=== PATIENT | male | born 1950 | race Caucasian/White ===

== ENCOUNTER → 2022-09-07 09:13 | Outpatient (BNVA) | payer SELFPAY | PROVIDERS: Visit Provider Physician Assistant Medical | DX: Z02.79 Encounter for issue of other medical certificate (principal) ==

== ENCOUNTER → 2022-11-27 14:11 | Outpatient (BNVA) | payer MEDICARE, OTHER, SELFPAY | PROVIDERS: PCP Internal Medicine; Visit Provider Physician Assistant Surgical | DX: E66.9 Obesity, unspecified (principal); Z68.38 Body mass index [BMI] 38.0-38.9, adult | CPT/HCPCS: 99202 ==

== ENCOUNTER 2022-12-15 10:03 | Outpatient (REF) | payer MEDICARE, OTHER, SELFPAY ==
[2022-12-15 10:44] LABS: MANUAL DIFF FLAG NO
[2022-12-15 11:05] LABS: Basophils Absolute Auto 0.1 X10*3/uL (0.0-0.2); Basophils Percent Auto 1.3 % (0-2); Eosinophils Absolute Auto 0.2 X10*3/uL (0.0-0.4); Eosinophils Percent Auto 2.8 % (0-4); Hematocrit 53.6 % (42.0-52.0); Hemoglobin 17.3 g/dl (14.0-18.0); Imm Gran Abs Auto 0.02 X10*3/uL (0.00-0.03); Imm Gran Pct Auto 0.3 % (0.0-0.4); Lymphocytes Absolute Auto 1.5 X10*3/uL (1.2-4.9); Mean Corpuscular HGB Conc 32.3 g/dl (31.0-36.0); Mean Corpuscular Hemoglobin 27.5 pg (27.0-33.0); Mean Corpuscular Volume 85.4 fL (80.0-98.0); Mean Platelet Volume 10.1 fL (9.4-12.4); Monocytes Absolute Auto 0.6 X10*3/uL (0.1-1.2); Neutrophils Absolute Auto 4.7 x10*3/uL (2.0-8.3); Neutrophils Percent Auto 65.6 % (45-73); Platelet Count 204 X10*3/uL (160-400); Red Blood Count 6.28 X10*6/uL (4.60-5.80); Red Cell Distribution Width 17.2 % (11.0-16.0); White Blood Count 7.2 X10*3/uL (4.8-10.8)
[2022-12-15 11:13] LABS: Estimated Average Glucose 117 mg/dL; Hemoglobin A1c % 5.7 %
[2022-12-15 11:46] LABS: Alanine Aminotransferase 16 U/L (0-40); Albumin Level 4.2 g/dL (3.5-5.0); Alkaline Phosphatase 69 U/L (39-117); Anion Gap 12 (12-20); Aspartate Amino Transferase 16 U/L (5-37); Bilirubin Total 0.8 mg/dL (0.0-1.0); Blood Urea Nitrogen 27 mg/dL (9-16); C Reactive Protein 0.16 mg/dL (< or = 0.50); Calcium 9.4 mg/dL (8.4-10.2); Carbon Dioxide 29 mmol/L (22-29); Chloride 105 mmol/L (96-108); Cholesterol 159 mg/dL; Estimated Glomerular Filt Rate > 60; Glucose Random 102 mg/dL (60-115); HDL Cholesterol 44 mg/dL; Iron 59 mcg/dL (45-160); LDL Cholesterol Calculated 95 mg/dl; Percent Iron Saturation 21 % (15-50); Potassium 4.8 mmol/L (3.3-5.1); Sodium 141 mmol/L (135-145); Total Iron Binding Capacity 282 mcg/dL (228-428); Total Protein 7.2 g/dL (6.5-8.0); Triglycerides 104 mg/dL; Unsaturated Iron Binding 223 ug/dL
[2022-12-15 12:20] LABS: Ferritin 81 ng/mL (20-250); Folate 13.8 ng/mL (> or = 4.0); Insulin 14 uU/mL (2-29); TSH reflex Free T4 1.09 uIU/mL (0.32-4.0); Vitamin B12 372 pg/mL (200-900); Vitamin D 25-OH Total 40.7 ng/mL (>30)
[2022-12-16 10:03] LABS: Calcium (PTHI) 9.4 mg/dL (8.6-10.3); PTHI 47 pg/mL (16-77)
[2022-12-17 16:28] LABS: Zinc 82 mcg/dL (60-130)
[2022-12-19 00:43] LABS: Vitamin A 53 mcg/dL (38-98)
== END 2022-12-15 10:04 | disposition home or self-care (01) ==
LOC: HO.LAB 10:03
PROVIDERS: PCP Internal Medicine; Visit Provider Physician Assistant Surgical
DX: E66.9 Obesity, unspecified (principal)
CPT/HCPCS: 36415; 80053; 80061; 82306; 82607; 82728; 82746; 83036; 83525; 83540; 83970; 84425; 84443; 84590; 84630; 85025; 86140

== ENCOUNTER → 2023-01-13 11:53 | Outpatient (BNVA) | payer MEDICARE, OTHER, SELFPAY | PROVIDERS: PCP Internal Medicine; Visit Provider Dietitian, Registered | DX: E66.9 Obesity, unspecified (principal); Z68.36 Body mass index [BMI] 36.0-36.9, adult | CPT/HCPCS: 97802 ==

== ENCOUNTER → 2023-02-01 12:58 | Outpatient (BNVA) | payer MEDICARE, OTHER, SELFPAY | PROVIDERS: PCP Internal Medicine; Referring Provider Internal Medicine; Visit Provider Physician Assistant Surgical | DX: E66.9 Obesity, unspecified (principal); Z68.35 Body mass index [BMI] 35.0-35.9, adult | CPT/HCPCS: 99212 ==

== ENCOUNTER → 2023-03-08 14:02 | Outpatient (BNVA) | payer MEDICARE, OTHER, SELFPAY | PROVIDERS: PCP Internal Medicine; Visit Provider Physician Assistant Surgical | DX: E66.9 Obesity, unspecified (principal); Z68.35 Body mass index [BMI] 35.0-35.9, adult | CPT/HCPCS: 99212 ==

== ENCOUNTER 2023-04-14 11:35 | Outpatient (REF) | payer MEDICARE, OTHER, SELFPAY ==
[2023-04-14 14:37] LABS: Vitamin D 25-OH Total 57.1 ng/mL (>30)
[2023-04-14 14:46] LABS: Vitamin B12 573 pg/mL (200-900)
[2023-04-19 13:13] LABS: Zinc 100 mcg/dL (60-130)
[2023-04-21 00:57] LABS: Vitamin A 67 mcg/dL (38-98)
[2023-04-21 05:58] LABS: Vitamin B1 19 nmol/L (8-30)
== END 2023-04-14 11:36 | disposition home or self-care (01) ==
LOC: HO.LAB 11:35
PROVIDERS: PCP Internal Medicine; Visit Provider Physician Assistant Surgical
DX: E66.9 Obesity, unspecified (principal); E63.9 Nutritional deficiency, unspecified
CPT/HCPCS: 36415; 82306; 82607; 82746; 84425; 84590; 84630; 99212

== ENCOUNTER 2023-05-25 13:25 | Outpatient (AMB) | payer MEDICARE, OTHER, SELFPAY ==
--- NOTE | 2023-05-25 13:31 | MHC.OFFVISWM ---
Intake VS Expanded 05/25/23 13:34 Height 5 ft 6 in Weight 211 lb 6.4 oz BMI 34.1 BP 133/60 Blood Pressure Location Rt brachial Blood Pressure Position Sitting Pulse 56 Pulse Source Pulse Oximeter Temp 98.0 F Temperature Source Temporal Artery Scan Pulse Oximetry 95 Oxygen Delivery Method Room Air Body Fat 60.8 Body Fat Percentage 28.8 Free Fat Mass 150.4 Muscle Mass 142.8 Visceral Mass 19.0 Water Mass 109.2 BMR 1,995 Intake Visit Reasons: (OV) F/U MWL Allergies No Known Allergies Allergy (Verified 05/25/23 13:33) Medication List - Last Reconciled 05/25/23 by DUNIA Espana amlodipine 5 mg PO DAILY atorvastatin 10 mg PO DAILY carvedilol phosphate ER 40 mg PO DAILY multivitamin 1 tab PO DAILY tadalafil 20 mg PO DAILY PRN tamsulosin 0.4 mg PO DAILY HPI HPI Comments History of Present Illness Details Pt presents in followup for MWL. Starting weight: 238.4 Weight at last visit: 214.2 Total weight change: -27 Goal weight: 210 Meal plan: Breakfast:?[employer] protein shake Goes to the gym 11:30am-12pm Omelet with vegetables- sometimes from a restaurant Snack:? Piece of fruit (oranges, apple)- after last visit added in a few slices of deli turkey to increase total protein intake Dinner salad with chicken and balsamic vinaigrette - small amount, or chicken and veg skewers with cottage cheese, or fish and asparagus/veg reports some irregular eating during summer vacations Exercise:? 2 times per week goes to a 1hr class with a focus core work session is 40 minutes plus 30 minutes of treadmill.? Additional 2-3 times per week does the elliptical. TRX classes once a week. Starting to golf. ? Has not had any additional episodes of bleeding tongue. PFSH Surgical History Hx of bladder endoscopy Hx of colonoscopy Family History Mother Diabetes Father No problems noted. Brother No problems noted. Brother ALS (amyotrophic lateral sclerosis) Brother No problems noted. Daughter No problems noted. Daughter No problems noted. Social History Alcohol intake: never Patient Tobacco Use Status: Never used Tobacco Physical Exam Vital Signs: Last Vital Signs Temp 98.0 F 05/25/23 13:34 Pulse 56 05/25/23 13:34 BP 133/60 05/25/23 13:34 Pulse Ox 95 05/25/23 13:34 Oxygen Delivery Method Room Air 05/25/23 13:34 BMI result Body Mass Index 34.1 Assessment & Plan Assessment & Plan (1) Obesity: Code(s): E66.9 - Obesity, unspecified Plan Vitamin levels were repeated for complaint of bleeding tongue, all WNL. Pt will continue same meal plan and exercise regimen for now. He finds it sustainable and we reviewed positive body composition changes on [place]. RTC 6 weeks per pt preference for ongoing MWL followup. Patient is obese and is not considered stable at this time. I spent a total of 30 minutes reviewing/updating records, examining the patient and counseling the patient on weight management as detailed above. Coding Level of Care Code Est Pt Level 4 (13853) Diagnoses Obesity E66.9
[2023-05-25 13:34] VITALS: BP 133/60; PULSE 56; TEMP 36.7; O2SAT 95; BMI 34.1
== END 2023-05-25 14:01 | disposition home or self-care (01) ==
PROVIDERS: PCP Internal Medicine; Visit Provider Physician Assistant Surgical
DX: E66.9 Obesity, unspecified (principal); Z68.34 Body mass index [BMI] 34.0-34.9, adult
CPT/HCPCS: 99214

== ENCOUNTER → 2023-05-25 13:25 | Outpatient (BNVA) | payer MEDICARE, OTHER, SELFPAY | PROVIDERS: PCP Internal Medicine; Visit Provider Physician Assistant Surgical | DX: E66.9 Obesity, unspecified (principal); Z68.34 Body mass index [BMI] 34.0-34.9, adult | CPT/HCPCS: 99212 ==

== ENCOUNTER 2023-07-13 12:31 | Outpatient (AMB) | payer MEDICARE, OTHER, SELFPAY ==
--- NOTE | 2023-07-13 12:33 | A.OFFVIS_ITS ---
Intake VS Expanded 07/13/23 12:42 Height 5 ft 6 in Weight 207 lb 9.6 oz BMI 33.5 BP 129/69 Blood Pressure Location Rt brachial Blood Pressure Position Sitting Respiratory Rate 16 Pulse 54 Pulse Source Pulse Oximeter Temp 98.4 F Temperature Source Temporal Artery Scan Pulse Oximetry 95 Oxygen Delivery Method Room Air Body Fat 59.4 Body Fat Percentage 28.6 Free Fat Mass 148.2 Muscle Mass 140.8 Visceral Mass 19.0 Water Mass 106.8 BMR 1,963 Intake Visit Reasons: (OV) F/U MWL Allergies No Known Allergies Allergy (Verified 07/13/23 12:42) Medication List - Last Reconciled 07/13/23 by DUNIA Espana amlodipine 5 mg PO DAILY atorvastatin 10 mg PO DAILY carvedilol phosphate ER 40 mg PO DAILY multivitamin 1 tab PO DAILY tadalafil 20 mg PO DAILY PRN tamsulosin 0.4 mg PO DAILY HPI HPI Comments History of Present Illness Details Pt presents in followup for MWL. Starting weight: 238.4 Weight at last visit: 211.4 Total weight change: -30.8 Initial goal weight: 210 Would now like to get under 200lbs. Meal plan: Breakfast:?[employer] protein shake Goes to the gym 11:30am-12pm Omelet with vegetables- sheryl etimes from a restaurant Snack:? Piece of fruit (oranges, apple)- after last visit added in a few slices of deli turkey to increase total protein intake Dinner salad with chicken and balsamic vinaigrette - small amount, or chicken and veg skewers with cottage cheese, or fish and asparagus/veg sometimes cheats Exercise:? 2 times per week goes to a 1hr class with a focus core work session is 40 minutes plus 30 minutes of treadmill.? Additional 2-3 times per week does the elliptical. TRX classes once a week. Starting to golf. ? PFSH Surgical History Hx of bladder endoscopy Hx of colonoscopy Family History Mother Diabetes Father No problems noted. Brother No problems noted. Brother ALS (amyotrophic lateral sclerosis) Brother No problems noted. Daughter No problems noted. Daughter No problems noted. Social History Alcohol intake: never Patient Tobacco Use Status: Never used Tobacco Assessment & Plan Assessment & Plan (1) Obesity: Code(s): E66.9 - Obesity, unspecified Plan Pt has done very well in MWL. Achieved 12.9% TBWL during this program. He is interested in semaglutide and will ask his PCP at next month's appt. I encouraged him to reach out via text or email with any future questions and he will come in for weight checks occasionally for accountability. Patient is obese and is not considered stable at this time. I spent a total of 30 minutes reviewing/updating records, examining the patient and counseling the patient on weight management as detailed above. Coding Level of Care Code Est Pt Level 4 (25505) Diagnoses Obesity E66.9
[2023-07-13 12:42] VITALS: BP 129/69; PULSE 54; RESP 16; TEMP 36.9; O2SAT 95; BMI 33.5
== END 2023-07-13 13:10 | disposition home or self-care (01) ==
PROVIDERS: PCP Internal Medicine; Visit Provider Physician Assistant Surgical
DX: E66.9 Obesity, unspecified (principal); Z68.33 Body mass index [BMI] 33.0-33.9, adult
CPT/HCPCS: 99213

== ENCOUNTER → 2023-07-13 12:31 | Outpatient (BNVA) | payer MEDICARE, OTHER, SELFPAY | PROVIDERS: PCP Internal Medicine; Visit Provider Physician Assistant Surgical ==

== ENCOUNTER → 2023-08-23 10:32 | Outpatient (BNVA) | payer SELFPAY | PROVIDERS: PCP Internal Medicine; Visit Provider Physician Assistant Medical | DX: Z02.79 Encounter for issue of other medical certificate (principal) ==

== ENCOUNTER 2025-03-20 10:51 | Outpatient (AMB) | payer MEDICARE, OTHER, SELFPAY ==
--- NOTE | 2025-03-20 10:55 | A.OFFVIS_ITS ---
VS Expanded 03/20/25 11:16 BP 127/65 Blood Pressure Location Rt brachial Blood Pressure Position Sitting Pulse 65 Pulse Source Pulse Oximeter Temp 97.9 F Temperature Source Temporal Artery Scan Pulse Oximetry 96 Oxygen Delivery Method Room Air Height 5 ft 6 in Weight 193 lb 9.6 oz BMI 31.2 Body Fat % 26.5 Body Fat Mass 51.4 Fat Free Mass 142.2 Visceral Fat Rating 17.0 Body Water % 52.2 Body Water Mass 101.0 Muscle Mass/Score 135.2 Basal Metabolic Rate/Score 1,869 Intake Visit Reasons: office visit , MWL Allergies No Known Allergies Allergy (Verified 03/20/25 11:13) Medication List - Last Reconciled 03/20/25 by DUNIA Espana amlodipine 5 mg PO DAILY atorvastatin 10 mg PO DAILY carvedilol phosphate ER 40 mg PO DAILY multivitamin 1 tab PO DAILY semaglutide (weight loss) (Wegovy) 1.7 mg subcut QWEEK tadalafil 20 mg PO DAILY PRN tamsulosin 0.4 mg PO DAILY HPI Comments Details: Pt presents in followup for MWL. Last visit 07/13/2023 Starting weight: 238.4 Weight at last visit: 207.6 Total weight change: -44.8 Initial goal weight: 210 On Wegovy 1.7, new goal is 180lbs. He reports a side effect of skin reaction that felt like a sunburn that he thought was due to Wegovy. Not related to injection site. Meal plan: Breakfast: [employer] michelle quigley Goes to the gym 11:30am-12pm Omelet with vegetables- sometimes from a restaurant Snack: Piece of fruit (oranges, apple) or cottage cheese with wheat crackers Dinner salad with chicken and balsamic vinaigrette - small amount, or chicken and veg skewers with cottage cheese, or fish and asparagus/veg Exercise: 2 times per week goes to a 1hr class with a focus core work session is 40 minutes plus 30 minutes of treadmill. Additional 2-3 times per week does the elliptical. TRX classes once a week. Starting to golf. PFSH Surgical History Hx of bladder endoscopy Hx of colonoscopy Family History Mother Diabetes Father No problems noted. Brother No problems noted. Brother ALS (amyotrophic lateral sclerosis) Brother No problems noted. Daughter No problems noted. Daughter No problems noted. Social History Alcohol intake: never Patient Tobacco Use Status: Never used Tobacco Assessment & Plan Assessment & Plan (1) Obesity: Code(s): E66.9 - Obesity, unspecified Category: Medical Plan Pt doing well on Wegovy, requests us to prescribe as his insurance requires it. Will continue same meal plan and exercise regimen. Sent pt a text so he has my # to communicate between appts and request refills. RTC 3mo. Medications: New semaglutide (weight loss) (Wegovy) administer weeks 13 through 16 of therapy 1.7 mg (0.75 mL) subcut QWEEK 3 mL 0RF
[2025-03-20 11:16] VITALS: BP 127/65; PULSE 65; TEMP 36.6; O2SAT 96; BMI 31.2
--- OUTSIDE RECORDS SUMMARY | 2025-03-20 11:40 | XMS_ITS | Encounter Summary ---
Author Organization [facility] Address [address] [place] [address] Care Team Providers Care Patent Engineer Name Role Phone Physician, Pcp Unknown Primary Care Provider Melly vailable Encounter Details Date Type Department Care Team (Late st Contact Info) Description 01/02/2025 Lab Requisition [facility] - Main Lab [address] [facility] [place] [address] Sang Knutson MD [address] [place] [phone] Carcinoma in situ of bladder Social History Tobacco Use Types Packs/Day Years Used Date Smoking Tobacco: Never Assessed Sex and Gender Information Value Date Recorded Sex Assigned at Not on file Legal Sex Male 7:47 AM EST Gender Identity Not on file Sexual Orientation Not on file documented as of this encounter Plan of Treatment Not on file documented as of this encounter Procedures Procedure Name Priority Date/Time Associated Diagnosis Comments AP OUTSIDE CONSULT Routine 12/28/2024 12 :00 AM EST Carcinoma in situ of bladder documented in this encounter Results * Anatomic pathology outside consult (12/28/2024 12:00 AM EST) Addendum Results of UroVysion fluorescence in situ hybridization (FISH) testing: CEP3: Normal CEP7: Normal CEP17: Normal LSI 9p21: Normal Interpretation: Normal profile Controls stained appropriately. Note: The results are intended as a screening device and should be interpreted in association with other clinical and pathological findings. 01/09/2025 12:43 PM EDT [facility] Addendum electronically signed by Bruno Cordoba MD on 01/09/2025 at 12:43 PM Final Diagnosis A. Urine, Voided, ([id number]): Negative for high grade urothelial carcinoma. Acute inflammatory cells are present. Note: UroVysion testing to follow. 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 Urine, Voided, ([id number]): Received one ThinPrep slide for cytology and one ThinPrep slide for UroVysion FISH 01/09/2025 12:43 PM EDT [facility] Disclaimer Unless otherwise specified, all tissue is 10% NB formalin fixed and paraffin embedded. Technical pathology services provided by [facility] at [address], [place] [address] (CLIA #[id number]/Shabnam Dwyer MD, Labor Relations Representative) 01/09/2025 12:43 PM EDT [facility] Tissue Urine specimen from urethra / Unknown 12/28/2024 01/02/2025 4:26 PM EDT us Sang Knutson MD LAB PATHOLOGY ORDERABLES Edite d Result - Final [facility] [address] [place] [address], documented in this encounter Visit Diagnoses Diagnosis Carcinoma in situ of bladder documented in this encounter Care Teams Patent Engineer Relationship Specialty Start Date End Date Physician, Pcp Unknown PCP - General 01/02/25 documented as of this encounter
== END 2025-03-20 11:37 | disposition home or self-care (01) ==
LOC: HO.HBS 10:52
PROVIDERS: PCP Internal Medicine; Visit Provider Physician Assistant Surgical
DX: E66.9 Obesity, unspecified (principal); Z68.31 Body mass index [BMI] 31.0-31.9, adult; E66.811 Obesity, class 1
CPT/HCPCS: 99214; G2211

== ENCOUNTER → 2025-03-20 10:51 | Outpatient (BNVA) | payer MEDICARE, OTHER, SELFPAY | PROVIDERS: PCP Internal Medicine; Visit Provider Physician Assistant Surgical | DX: E66.9 Obesity, unspecified (principal); Z68.31 Body mass index [BMI] 31.0-31.9, adult | CPT/HCPCS: 99212 ==

== ENCOUNTER 2025-05-29 11:53 | Outpatient (AMB) | payer MEDICARE, OTHER, SELFPAY ==
--- NOTE | 2025-05-29 11:57 | MHC.OFFVISWM ---
VS Expanded 05/29/25 12:04 BP 110/51 L Blood Pressure Location Rt brachial Blood Pressure Position Sitting Pulse 62 Pulse Source Pulse Oximeter Temp 97.3 F Pulse Oximetry 96 Oxygen Delivery Method Room Air Height 5 ft 6 in Weight 188 lb 3.2 oz BMI 30.4 Body Fat % 25.5 Body Fat Mass 48 Fat Free Mass 140 Visceral Fat Rating 17 Body Water % 52.6 Body Water Mass 99 Muscle Mass/Score 133 Basal Metabolic Rate/Score 1,835 Intake Visit Reasons: OV F/U MWL Allergies No Known Allergies Allergy (Verified 05/29/25 12:08) Medication List - Last Reconciled 05/29/25 by Abdiaziz Castro, RN amlodipine 5 mg PO DAILY atorvastatin 10 mg PO DAILY carvedilol phosphate ER 40 mg PO DAILY multivitamin 1 tab PO DAILY semaglutide (weight loss) (Wegovy) 2.4 mg (0.75 mL) subcut QWEEK tadalafil 20 mg PO DAILY PRN tamsulosin 0.4 mg PO DAILY HPI Comments Details: Pt presents in followup for MWL. Starting weight: 238.4 Weight at last visit: 193.6 Total weight change: -52.2 Initial goal weight: 210 On Wegovy 2.4, new goal is 180lbs. Meal plan: Breakfast: [employer] protein soraida Goes to the gym 11:30am-12pm Omelet with vegetables- sometimes from a restaurant Snack: Piece of fruit (oranges, apple) or cottage cheese with wheat crackers Dinner salad with chicken and balsamic vinaigrette - small amount, or chicken and veg skewers with cottage cheese, or fish and asparagus/veg Exercise: 2 times per week goes to a 1hr class with a focus core work session is 40 minutes plus 30 minutes of treadmill. Additional 2-3 times per week does the elliptical. TRX classes once a week. Starting to golf. PFSH Surgical History Hx of bladder endoscopy Hx of colonoscopy Family History Mother Diabetes Father No problems noted. Brother No problems noted. Brother ALS (amyotrophic lateral sclerosis) Brother No problems noted. Daughter No problems noted. Daughter No problems noted. Social History Alcohol intake: never Patient Tobacco Use Status: Never used Tobacco Physical Exam Vital Signs: Last Vital Signs Temp 97.3 F 05/29/25 12:04 Pulse 62 05/29/25 12:04 BP 110/51 L 05/29/25 12:04 Pulse Ox 96 05/29/25 12:04 Oxygen Delivery Method Room Air 05/29/25 12:04 BMI result Body Mass Index 30.4 Assessment & Plan Assessment & Plan (1) Obesity: Code(s): E66.9 - Obesity, unspecified Category: Medical Plan Pt is happy with his progress. On max dose of Wegovy without side effects. Will text me next week when due for a refill. RTC in September prior to plans to travel to [place].
[2025-05-29 12:04] VITALS: BP 110/51; PULSE 62; TEMP 36.3; O2SAT 96; BMI 30.4
--- OUTSIDE RECORDS SUMMARY | 2025-05-29 12:42 | XMS_ITS | Encounter Summary ---
Author Organization [facility] Address [address] [place] [address] Phone Care Team Providers Care Engineer Name Role Phone Daniel Mooney MD Primary Care Provider Sang Knutson MD Unavailable [phone] Abdiaziz Aceves MD, MPH Unavailable [phone] Encounter Details Date Type Department Care Team (Late st Contact Info) Description 08/10/2024 Procedure Pass Britta Lank Imaging Department, [facility] [place], [place] [address] [place] [address] Social History Tobacco Use Types Packs/Day Years Used Date Smoking Tobacco: Never Smokeless Tobacco: Never Alcohol Use Standard Drinks/Week Comments Yes 0 (1 standard drink = 0.6 oz pur e alcohol) Child or Family Care Answer Date Record ed Do you have problems with on e of the following making it difficult for you to work, study, or receive health care? No 08/10/2024 Education Answer Date Recorded Are you interested in more education? Not on kathia e 02/19/2023 Are you concerned about learning? Not on file 02/19/2023 No 02/19/2023 No 02/19/2023 Food Answer Date Recorded Within the past 6 months we worried whether our food would run out before we got money to buy more. Never True 08/10/2024 Within the past 6 months the food we bought just didn't last and we didn't have enough money to get more. Never True Residential Stability Answer Date Recor ded What is your housing situation today? I have toñito bullard 08/10/2024 How many times have you move d in the past 12 months? Zero (I did not move) 08/10/2024 Paying for Meds Answer Date Recorded Do you have trouble paying for medicines? No 08/10/2024 Paying Utility Bills Answer Date Record ed Do you have trouble paying your heating or elect ricity bill? No 08/10/2024 Transportation Answer Date Recorded Has the lack of transportati on kept you from medical appointments or from getting medications? No 08/10/2024 Digital Access Answer Date Recorded No 03/20/2023 No 03/20/2023 Reliable internet access at home? Not on file 03/20/2023 Device with a working camera? Not on file Sex and Gender Information Value Date Recorded Sex Assigned at Male 06/27/2024 12:31 PM EDT Legal Sex Male 4:06 PM EDT Gender Identity Male 06/27/2024 12:31 PM EDT Sexual Orientation Straight 06/27/2024 12 :31 PM EDT documented as of this encounter Plan of Treatment Not on file documented as of this encounter Visit Diagnoses Not on filedocumented in this encounter Care Teams Engineer Relationship Specialty Start Date End Date Daniel Mooney MD [address] [place] [address] [address] [place] [address] PCP - General Internal Medicine 08/02/18 Sang Knutson MD [address] [place] [address] [address] [place] [phone] [email or web address] Referring Physician Urology 06/27/24 Abdiaziz Aceves MD, MPH [address] [place] [id number] [email or web address] Urology 06/27/24 documented as of this encounter Additional Source Comments The information contained in this document represents components of the legal health record. It is not the complete legal health record.[facility]
--- OUTSIDE RECORDS SUMMARY | 2025-05-29 12:42 | XMS_ITS | Encounter Summary ---
Author Organization [facility] Address [address] [place] [address] Care Team Providers Care Automation Operator Name Role Phone Daniel Mooney MD Primary Care Provider [phone] Encounter Details Date Type Department Care Team (Late st Contact Info) Description 01/02/2025 Lab Requisition [facility] - Main Lab [address] [facility] [place] [address] Sang Knutson MD [address] [place] [address] Carcinoma in situ of bladder Social History [...] and pathological findings. 01/09/2025 12:43 PM EDT [facility] Addendum electronically signed by Bruno Cordoba MD on 01/09/2025 at 12:43 PM Final Diagnosis A. Urine, Voided, ([id number]): Negative for high grade urothelial carcinoma. Acute inflammatory cells are present. Note: UroVysion testing to follow. 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 Urine, Voided, ([id number]): Received one ThinPrep slide for cytology and one ThinPrep slide for UroVysion FISH 01/09/2025 12:43 PM EDT [facility] Disclaimer Unless otherwise specified, all tissue is 10% NB formalin fixed and paraffin embedded. Technical pathology services provided by [facility] at [address], [place] [address] (CLIA #[id number]/Shabnam Dwyer MD, Landscape Artist) 01/09/2025 12:43 PM EDT [facility] Tissue Urine specimen from urethra / Unknown 12/28/2024 01/02/2025 4:26 PM EDT Sang Knutson MD LAB PATHOLOGY ORDERABLES Edite d Result - Final [facility] [address] [place] [address], documented in this encounter Visit Diagnoses Diagnosis Carcinoma in situ of bladder documented in this encounter Care Teams Automation Operator Relationship Specialty Start Date End Date Daniel Mooney MD [address] [place] [id number] PCP - General Internal Medicine 04/13/25 documented as of this encounter
--- OUTSIDE RECORDS SUMMARY | 2025-05-29 12:42 | XMS_ITS | Clinical Summary ---
Author Organization [facility], Address [address] [place] [address] Phone Care Team Providers Care Superintendent Maintenance Airports Name Role Phone Daniel Mooney MD Primary Care Provider [phone] Allergies No known active allergies Medications aspirin (ST SHELLEY) 81 MG EC tablet Take 81 mg by mouth 1 (one) time each day Active atorvastatin (LIPITOR) 10 MG tablet Take 10 mg by mouth 1 (one) time each day Active carvedilol CR (COREG CR) 40 MG 24 hr capsule Take 40 mg by mouth 1 (one) time each day Do not crush or chew. Active sertraline (ZOLOFT) 50 MG tablet Take 50 mg by mouth 1 (one) time each day Active tadalafil (CIALIS) 20 MG tablet Take 20 mg by mouth 1 (one) time each day if needed for erectile dysfunction Active tamsulosin (FLOMAX) 0.4 MG 24 hr capsule Take by mouth 1 (one) time each day 2 Active prednisoLONE acetate (PRED FORTE) 1 % ophthalmic suspension INSTILL 1 DROP INTO RIGHT EYE 4X/DAY 2 Active GaviLyte-G 236 g solution TAKE 8 OUNCE BY MOUTH DIRECTED FOLLOW INSTRUCTIONS PROVIDED BY DOCTOR OFFICE 2 Active hydrOXYzine (ATARAX) 10 MG tablet TAKE 2 TABLETS BY MOUTH 4 TIMES A DAY NEEDED FOR ANXIETY 2 Active fluticasone (FLONASE) 50 MCG/ACT nasal spray USE 1 SPRAY INTRANASALLY TWICE A DAY 2 Active ciclopirox (LOPROX) 0.77 % cream APPLYTO AFFECTED AREA EXTERNALLY TO FEET TWICE A DAY FOR 30 DAYS 2 Active amLODIPine (NORVASC) 5 MG tablet Take 5 mg by mouth 1 (one) time each day 2 Active Active Problems Problem Noted Date Diagnosed Date Chronic kidney disease stage 3 12/19/2021 Anxiety 12/19/2021 Hyperlipidemia 12/19/2021 Hypertensive disorder 12/19/2021 Malignant neoplasm of urinary bladder 12/19/2021 Multiple renal cysts 12/19/2021 Resolved Problems Problem Noted Date Diagnosed Date Resolved Date Diverticulosis of colon 12/19/202111/26 History of cerebrovascular accident 12/19/2021 12/19/2021 Impaired glucose tolerance 12/19/2021 0 12/19/2021 Nonalcoholic steatohepatitis (BETHEA) 12/19/2021 12/19/2021 Tinea unguium 12/19/2021 12/19/2021 Bilateral hearing loss 07/13/201912/19 Chronic otitis externa 08/15/201812/19 Sensorineural hearing loss, bilateral 08/15/2018 12/19/2021 Social History Tobacco Use Types Packs/Day Years Used Date Smoking Tobacco: Never Assessed Sex and Gender Information Value Date Recorded Sex Assigned at Not on file Legal Sex Male 11:04 AM EST Gender Identity Not on file Sexual Orientation Not on file Last Filed Vital Signs Vital Sign Reading Time Taken Comments Blood Pressure 116/64 07/28/2024 2:50 PM EDT Pulse - - Temperature - - Respiratory Rate - - Oxygen Saturation - - Inhaled Oxygen Concentration - - Weight - - Height - - Body Mass Index - - Plan of Treatment Health Maintenance Due Date Last Done Comments Colorectal Cancer Screening: Annual FOBT 1998 Colorectal Cancer Screening: Colonoscopy 1998 Colorectal Cancer Screening: Sigmoidoscopy 1998 Hepatitis B Vaccine (1 of 3 - Risk 3-dose series) 02/2009 Pneumococcal Vaccine: 50+ Ye ars (2 of 2 - PPSV23, PCV20, or PCV21) 02/26/2020 01/01/2020 Influenza Vaccine (#1) 2025 Insurance Medicare [facility] Care Teams Superintendent Maintenance Airports Relationship Specialty Start Date End Date Daniel Mooney MD [address] [place] [address] PCP - General Internal Medicine 11/11/21
== END 2025-05-29 12:26 | disposition home or self-care (01) ==
LOC: HO.HBS 11:53
PROVIDERS: PCP Internal Medicine; Visit Provider Physician Assistant Surgical
DX: E66.9 Obesity, unspecified (principal); Z68.30 Body mass index [BMI] 30.0-30.9, adult
CPT/HCPCS: 99212; G2211

== ENCOUNTER → 2025-05-29 11:53 | Outpatient (BNVA) | payer MEDICARE, OTHER, SELFPAY | PROVIDERS: PCP Internal Medicine; Visit Provider Physician Assistant Surgical | DX: E66.9 Obesity, unspecified (principal); Z68.30 Body mass index [BMI] 30.0-30.9, adult; Z79.899 Other long term (current) drug therapy | CPT/HCPCS: 99212 ==

== ENCOUNTER 2025-09-26 12:21 | Outpatient (AMB) | payer MEDICARE, OTHER, SELFPAY ==
--- OUTSIDE RECORDS SUMMARY | 2025-07-05 05:30 | XMS_ITS ---
Author Organization [facility] Address [address] [place] [address] Care Team Providers Care Maintenance Electrician Name Role Phone Jesica CARUSO, Daniel Primary Care Provider Cristian Chavez Unavailable [phone] Encounters Encounter Location Date Provider Diagnosis [address] [id number] 07/05/2025 Cristian Sharma Plan Of Treatment Next Appt Details Provider Name:Cristian Sharma , 10/15/2025 09:00:00 AM, [address] [place] [address], [phone], Progress Notes * Janes BOYCE MDOB: [birth year] (74 yo M)Acc No.[id number]:07/05/2025 Progress Note Patient: Janes GODOY Provider: Tan Sharma DPM :1950 A ge:74 Y S ex:Male Date:07/05/2025 Address:[id number] Pcp:Daniel Mooney MD Subjective: * Chief Complaints: * * Medical History: Objective: * Vitals: Assessment: Plan: * Treatment: * Images: * The named appointment provid er may or may not be the originator of this progress note, and it is not deemed complete until electronically signed by the appointment provider. Sign off status: Pending * Provider: Tan Sharma DPM Date: 0 07/05/2025 Generated for Lisa byrd/Mariposa/Hubert on: 11/27/2024 02:40 PM EST
--- NOTE | 2025-09-26 12:37 | MHC.OFFVISWM ---
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 Starting weight: 238.4 Weight at last visit: 188.2 Total weight change: -50.2 Initial goal weight: 210 On Wegovy 2.4mg, new goal is 180lbs. Meal plan: Breakfast: [employer] protein soraida Goes to the gym 11:30am-12pm Omelet with vegetables- sometimes from a restaurant Snack: Piece of fruit (oranges, apple) or cottage cheese with wheat crackers Dinner salad with chicken and balsamic vinaigrette - small amount, or chicken and veg skewers with cottage cheese, or fish and asparagus/veg Exercise: 2 times per week goes to a 1hr class with a focus core work session is 40 minutes plus 30 minutes of treadmill. Additional 2-3 times per week does the elliptical. TRX classes once a week. Starting to golf. PFSH Surgical History Hx of bladder endoscopy Hx of colonoscopy Family History Mother Diabetes Father No problems noted. Brother No problems noted. Brother ALS (amyotrophic lateral sclerosis) Brother No problems noted. Daughter No problems noted. Daughter No problems noted. Social History Alcohol intake: never Patient Tobacco Use Status: Never used Tobacco Physical Exam Vital Signs: Last Vital Signs Temp 97.3 F 09/26/25 12:43 Pulse 59 09/26/25 12:43 BP 135/63 09/26/25 12:43 Pulse Ox 98 09/26/25 12:43 Oxygen Delivery Method Room Air 09/26/25 12:43 Oxygen Flow Rate 189 09/26/25 12:43 BMI result Body Mass Index 30.5 Assessment & Plan Assessment & Plan (1) Obesity: Code(s): E66.9 - Obesity, unspecified Category: Medical Plan Pt is happy with his progress. On max dose of Wegovy without side effects. Will continue to text me when due for a refill. Will let me know if his insurance coverage changes next year. He is open to self pay. RTC in February after travel to [place].
[2025-09-26 12:43] VITALS: BP 135/63; PULSE 59; TEMP 36.3; O2SAT 98; BMI 30.5
--- OUTSIDE RECORDS SUMMARY | 2025-09-26 14:40 | XMS_ITS | Encounter Summary ---
Author Organization [facility] Address [address] [facility] [address] [place] [address] Phone Care Team Providers Care Novelty Dipper Name Role Phone Daniel Mooney MD Primary Care Provider Sang Knutson MD Unavailable [phone] Abdiaziz Aceves MD, MPH Unavailable [phone] Encounter Details Date Type Department Care Team (Late st Contact Info) Description 08/10/2024 Procedure Pass Britta Lank Imaging Department, [facility] [place], [place] [address] [facility], Floor [address] [place] [address] Social History Tobacco Use Types Packs/Day Years [...] on filedocumented in this encounter Care Teams Novelty Dipper Relationship Specialty Start Date End Date Daniel Mooney MD [address] [place] [address] [address] [place] [address] PCP - General Internal Medicine 08/02/18 Sang Knutson MD [address] [place] [address] [address] [place] [phone] [email or web address] Referring Physician Urology 06/27/24 Abdiaziz Aceves MD, MPH [address] [place] [id number] [email or web address] Urology 06/27/24 documented as of this encounter Additional Source Comments The information contained in this document represents components of the legal health record. It is not the complete legal health record.[facility]
--- OUTSIDE RECORDS SUMMARY | 2025-09-26 14:40 | XMS_ITS | Encounter Summary ---
Author Organization [facility] Address [address] [place] [address] Phone Care Team Providers Care Front Office Help Name Role Phone Daniel Mooney MD Primary Care Provider Sang Knutson MD Unavailable [phone] Abdiaziz Aceves MD, MPH Unavailable [phone] Encounter Details Date Type Department Care Team (Late st Contact Info) Description 09/12/2024 Procedure Pass [facility] [address] [place] [address] Social History Tobacco Use Types Packs/Day Years [...] on filedocumented in this encounter Care Teams Front Office Help Relationship Specialty Start Date End Date Daniel Mooney MD [address] [place] [address] [address] [place] [address] PCP - General Internal Medicine 08/02/18 Sang Knutson MD [address] [place] [address] [address] [place] [address] [email or web address] Referring Physician Urology 06/27/24 Abdiaziz Aceves MD, MPH [address] [place] [id number] [email or web address] Urology 06/27/24 documented as of this encounter Additional Source Comments The information contained in this document represents components of the legal health record. It is not the complete legal health record.[facility]
--- OUTSIDE RECORDS SUMMARY | 2025-09-26 14:40 | XMS_ITS | Encounter Summary ---
Author Organization [facility] Address [address] [facility] [address] [place] [address] Phone Care Team Providers Care Silver Holloware Assembler Name Role Phone Daniel Mooney MD Primary Care Provider Sang Knutson MD Unavailable [phone] Abdiaziz Aceves MD, MPH Unavailable [phone] Encounter Details Date Type Department Care Team (Late st Contact Info) Description 08/10/2024 Procedure Pass Britta Lank Imaging Department, [facility] [place], [place] [address] [facility], [address] [place] [address] Social History Tobacco Use Types Packs/Day Years [...] on filedocumented in this encounter Care Teams Silver Holloware Assembler Relationship Specialty Start Date End Date Daniel Mooney MD [address] [place] [address] 104 [place] [address] PCP - General Internal Medicine 08/02/18 Sang Knutson MD [address] [place] [address] [address] [place] [address] [email or web address] Referring Physician Urology 06/27/24 Abdiaziz Aceves MD, MPH [address] [place] [phone] [email or web address] Urology 06/27/24 documented as of this encounter Additional Source Comments The information contained in this document represents components of the legal health record. It is not the complete legal health record.[facility]
--- OUTSIDE RECORDS SUMMARY | 2025-09-26 14:40 | XMS_ITS | Encounter Summary ---
Author Organization [facility] Address [address] [place] [address] Care Team Providers Care Consultant Rn Name Role Phone Daniel Mooney MD Primary Care Provider Encounter Details Date Type Department Care Team (Late st Contact Info) Description 08/23/[address] [facility] [address] [facility] [place] [address] Sang Knutson MD [address] [place] [phone] Personal history of malignant neoplasm of bladder Social History Tobacco Use Types Packs/Day Years Used Date Smoking Tobacco: Never Assessed Sex and Gender Information Value Date Recorded Sex Assigned at Not on file Legal Sex Male 7:47 AM EST Gender Identity Not on file Sexual Orientation Not on file documented as of this encounter Plan of Treatment Not on file documented as of this encounter Goals Goal Patient Goal Type Associated Problems Recent Progress Patient-Stated? Author Autogenera rené Goal Care Plan Autogenerated Problem No Rosi Cabezas documented as of this encounter Procedures Procedure Name Priority Date/Time Associated Diagnosis Comments NON-GYNECOLOGIC CYTOLOGY Routine 08/07/2025 12:00 AM EDT Personal history of malignant neoplasm of bladder documented in this encounter Results * Non-gynecologic cytology (08/07/2025 12:00 AM EDT) Final Diagnosis Cystoscopic urine, [id number]: Negative for high grade urothelial carcinoma. Results of UroVysion fluorescence in situ hybridization (FISH) testing: CEP3: Normal CEP7: Normal CEP17: Normal LSI 9p21: Normal Interpretation: Normal profile Controls stained appropriately. Note: The results are intended as a screening device and should be interpreted in association with other clinical and pathological findings. 08/28/2025 12:39 PM [facility] at 1239 EST Specimen A Adequacy Satisfactory for evaluation 08/28/2025 12:39 PM [facility] Clinical Information History of bladder neoplasm (malignant) Z85.51 Urine Cytology/FISH (now) 08/28/2025 12:39 PM [facility] Gross Description A. Cystoscopic, [id number]: Received one ThinPrep slide for cytology and one ThinPrep slide for UroVysion FISH 08/28/2025 12:39 PM [facility] Disclaimer Unless otherwise specified, all tissue is 10% NB formalin fixed and paraffin embedded. Technical pathology services provided by [facility] at [address], [place] [address] (CLIA #[id number]/Shabnam Dwyer MD, [employer]) 08/28/2025 12:39 PM [facility] Urine Cystoscope / Unknown 08/07/2025 08/23/2025 7:32 AM EDT us Sang Knutson MD LAB CYTOLOGY ORDERABLES Final Result [facility] [address] [place] [address], documented in this encounter Visit Diagnoses Diagnosis Personal history of malignant neoplasm of bladder documented in this encounter Additional Health Concerns Active Problems Noted Date Diagnosed Date Autogenerated Problem 08/19/2025 documented as of this encounter Care Teams Consultant Rn Relationship Specialty Start Date End Date Daniel Mooney MD [address] [place] [address] PCP - General Internal Medicine 04/13/25 documented as of this encounter
--- OUTSIDE RECORDS SUMMARY | 2025-09-26 14:40 | XMS_ITS | Clinical Summary ---
Author Organization LL [address] [facility] Address [address] [place] [address] Phone Care Team Providers Care Pattern Gater Name Role Phone Daniel Mooney MD Primary Care Provider Allergies No known active allergies Medications amLODIPine (NORVASC) 5 mg tablet Active atorvastatin (LIPITOR) 10 mg tablet Active carvedilol CR (COREG CR) 40 mg 24 hr capsule Active fluticasone propionate (FLONASE) 50 mcg/actuation nasal spray Administer into affected nostril(s). 2 Active hydrOXYzine HCL (ATARAX) 10 mg tablet Active tadalafiL (CIALIS) 20 mg tablet Active tamsulosin (FLOMAX) 0.4 mg 24 hr capsule Active aspirin 81 mg EC tablet Take 1 tablet (81 mg total) by mouth 1 (one) time each day. Active MULTIVITAMIN ORAL Take by mouth. Activ e semaglutide (WEGOVY) 1.7 mg/0.75 mL injection pen Inject 1.7 mg under the skin every 7 (seven) days. Active tadalafiL (CIALIS) 20 mg tablet Take 1 tablet (20 mg total) by mouth 1 (one) time each day if needed for erectile dysfunction. Active polyethylene glycol (Golytely) 236-22.74-6.74 -5.86 gram solution Take 4L by mouth once for one dose. May substitue any PEG. Starting at 2PM the day before your procedure drink 1 8oz glasses at your own pace until you complete half of the gallon. Finish 2nd half of the gallon at 8PM. 4000 mL 11/10/202 5 Active bisacodyL (DULCOLAX) 5 mg EC tablet Take 2 tablets by mouth right before beginning bowel prep. See instructions provided by the office 2 tablet Active Encounters Date Type Department Care Team Description 09/19/2025 Results Follow-Up Gastroenterology - [address] [facility] [address] [place] [phone] Pablo Mendez MD 09/17/2025 8:20 AM EST Anesthesia Event [facility] Endoscopy [address] [place] [phone] Macario Mcallister MD 09/17/2025 7:33 AM EST - 09/17/2025 11:59 PM EST Hospital Encounter [facility] Endoscopy [address] [place] [phone] Pablo Mendez MD Johnson, Lorraine, CRNA Gomes, Sheldon B, MD Hx of colonic polyps Discharge Disposition: Home or Self Care 08/23/[address] [facility] - Main Lab [address] [facility] [place] [phone] Sang Knutson MD Personal history of malignant neoplasm of bladder from Last 3 Months Medical History Medical History Date Comments Hyperlipidemia Hypertension Social History Tobacco Use Types Packs/Day Years Used Date Smoking Tobacco: Never Smokeless Tobacco: Never Tobacco Cessation:Counseling Given: Not Answered Alcohol Use Standard Drinks/Week Comments Yes 3 (1 standard drink = 0.6 oz pur e alcohol) Interpersonal Safety Answer Date Record ed Physical Abuse Unrecognized value 09/17/2025 Verbal Abuse Unrecognized value 09/17/2025 Sex and Gender Information Value Date Recorded Sex Assigned at Not on file Legal Sex Male 7:47 AM EST Gender Identity Not on file Sexual Orientation Not on file Obstetrics History Last Filed Vital Signs Vital Sign Reading Time Taken Comments Blood Pressure 96/71 09/17/2025 9:05 AM EST Pulse 57 09/17/2025 9:05 AM EST Temperature 36.1 C (97 F) 09/17/2025 8:45 AM EST Respiratory Rate 16 09/17/2025 9:05 AM EST Oxygen Saturation 97% 09/17/2025 9:05 AM EST Inhaled Oxygen Concentration - - Weight 84.4 kg (186 lb) 09/17/2025 7:49 AM EST Height 167.6 cm (5' 6 ) 09/17/2025 7:49 AM EST Body Mass Index 30.02 09/17/2025 7:49 AM EST Plan of Treatment Health Maintenance Due Date Last Done Comments Hepatitis A Vaccines (1 of 2 - Risk 2-dose series) 1968 Hepatitis B Vaccines (1 of 3 - Risk 3-dose series) 2009 Cholesterol Screening (Lipid Panel) 09/27/2022 Hepatitis C Screening 09/27/2022 Social Influencers of Health Screening 09/27/2022 Medicare Annual Wellness Visit 03/18/2024 03/18/2023 Depression Screening 10/25/2024 Hypertension/CHF/CAD Annual BMP Blood Test 09/17/2025 COVID-19 Vaccine ( season) 2026 07/10/2025, 07/19/2024, 09/09/2022, Additional history exists Falls Risk Assessment 09/17/2026 09/17/2025 Colorectal Cancer Screening: Colonoscopy 09/17/2030 09/17/2025, 04/15/2017 DTaP,Tdap,and Td Vaccines (2 - Td or Tdap) 07/10/2035 07/10/2025 Zoster Vaccines Completed 06/25/2021, 09/17/2020 Pneumococcal Vaccine: 50+ Years Completed 04/27/2023, 01/01/2020, 06/17/2018 RSV Immunization Adult Patients Completed 2023 Influenza Vaccine Completed 07/10/2025, , 09/13/2023, Additional history exists HIB Vaccines Aged Out No longer eligi ble based on patient's age to complete this topic HPV Vaccines Aged Out No longer eligi ble based on patient's age to complete this topic IPV Vaccines Aged Out No longer eligi ble based on patient's age to complete this topic MMR Vaccines Aged Out No longer eligi ble based on patient's age to complete this topic Meningococcal ACWY Vaccine Aged Out N o longer eligible based on patient's age to complete this topic Meningococcal B Vaccine Aged Out No l onger eligible based on patient's age to complete this topic RSV Immunization Patients Under 20 months Aged Out No longer eligible based on patient's age to complete this topic Varicella Vaccines Aged Out No longer eligible based on patient's age to complete this topic Goals Goal Patient Goal Type Associated Problems Recent Progress Patient-Stated? Author Autogenera rené Goal Care Plan Autogenerated Problem No Rosi Cabezas Procedures Procedure Name Priority Date/Time Associated Diagnosis Comments COLONOSCOPY Routine 09/17/2025 8:44 AM EST Hx of colonic polyps TISSUE EXAM Routine 09/17/2025 8:39 AM EST Hx of colonic polyps NON-GYNECOLOGIC CYTOLOGY Routine 08/07/2025 12:00 AM EDT Personal history of malignant neoplasm of bladder from Last 3 Months Results * COLONOSCOPY Anesthesia - MAC; [facility] ENDOSCOPY (09/17/2025 8:44 AM EST) Anatomical Region Laterality Modality Endoscopy 09/17/2025 8:26 AM EST Impressions 09/17/2025 8:46 AM EST - Diverticulosis in the sigmoid colon. - One 6 mm polyp in the descending colon, removed with a cold snare. Resected and retrieved. - The examination was otherwise normal on direct and retroflexion views. Recommendation: - Await pathology results. - Repeat colonoscopy in 5 years for surveillance. Narrative 09/17/2025 8:46 AM EST [facility] GI Patient Name: Janes Atkinson Procedure Date: 09/17/2025 8:26 AM Date of : 1950 Age: 74 Room: ROOM 15 Gender: Male Note Status: Finalized Attending MD: Pablo Mendez MD, Procedure Date No Time: 09/17/2025 Procedure: Colonoscopy Indications: High risk colon cancer surveillance: Personal history of colonic polyps Providers: Pablo Mendez MD Referring MD: Pablo Mendez MD Medicines: Propofol per Anesthesia Complications: No immediate complications. Estimated Blood Loss: Estimated blood loss: none. Procedure: Pre-Anesthesia Assessment: - ASA Grade Assessment: II - A patient with mild systemic disease. After I obtained informed consent, the scope was passed under direct vision. Throughout the procedure, the patient's blood pressure, pulse, and oxygen saturations were monitored continuously.The Colonoscope was introduced through the anus and advanced to the cecum, identified by appendiceal orifice and ileocecal valve. The colonoscopy was performed without difficulty. The patient tolerated the procedure well. The quality of the bowel preparation was good. Findings: The perianal and digital rectal examinations were normal. Multiple diverticula were found in the sigmoid colon. A 6 mm polyp was found in the descending colon. The polyp was sessile. The polyp was removed with a cold snare. Resection and retrieval were complete. The exam was otherwise without abnormality on direct and retroflexion views. Procedure Code(s): --- Professional --- 36622, Colonoscopy, flexible; with removal of tumor(s), polyp(s), or other lesion(s) by snare technique Diagnosis Code(s): --- Professional --- Z86.010, Personal history of colonic polyps D12.4, Benign neoplasm of descending colon K57.30, Diverticulosis of large intestine without perforation or abscess without bleeding CPT copyright 2021 [employer]. All rights reserved. The codes documented in this report are preliminary and upon tire care manager review may be revised to meet current compliance requirements. Pablo Mendez MD 09/17/2025 8:45:43 AM This report has been signed electronically.Pablo Mendez MD Number of Addenda: 0 Note Initiated On: 09/17/2025 8:26 AM Scope In: Scope Out: Endoscopy Department at [facility] - [address] [place] [id number] Procedure Note Pablo Mendez MD - 09/17/2025 [facility] GI Patient Name: Janes Atkinson Procedure Date: 09/17/2025 8:26 AM Date of : 1950 Age: 74 Room: ROOM 15 Gender: Male Note Status: Finalized Attending MD: Pablo Mendez MD, Procedure Date No Time: 09/17/2025 Procedure: Colonoscopy Indications: High risk colon cancer surveillance: Personalhistory of colonic polyps Providers: Pablo Mendez MD Referring MD: Pablo Mendez MD Medicines: Propofol per Anesthesia Complications: No immediate complications. Estimated Blood Loss: Estimated blood loss: none. Procedure: Pre-Anesthesia Assessment: - ASA Grade Assessment: II - A patient with mild systemic disease. After I obtained informed consent, the scope was passed under direct vision. Throughout theprocedure, the patient's blood pressure, pulse, and oxygen saturations were monitored continuously.The Colonoscope was introduced through the anus and advanced to the cecum, identified by appendiceal orifice and ileocecal valve. The colonoscopy was performed without difficulty. The patient tolerated the procedure well. The quality of the bowel preparation was good. Findings: The perianal and digital rectal examinations were normal. Multiple diverticula were found in the sigmoidcolon. A 6 mm polyp was found in the descending colon. The polyp was sessile. The polyp was removed with acold snare. Resection and retrieval were complete. The exam was otherwise without abnormality ondirect and retroflexion views. Procedure Code(s): --- Professional --- 63045, Colonoscopy, flexible; with removal of tumor(s), polyp(s), or other lesion(s) by snare technique Diagnosis Code(s): --- Professional --- Z86.010, Personal history of colonic polyps D12.4, Benign neoplasm of descending colon K57.30, Diverticulosis of large intestine without perforation or abscess without bleeding CPT copyright 2020 [employer]. All rights reserved. The codes documented in this report are preliminary and upon tire care manager reviewmay be revised to meet current compliance requirements. Pablo Mendez MD 09/17/2025 8:45:43 AM This report has been signed electronically.Pablo Mendez MD Number of Addenda: 0 Note Initiated On: 09/17/2025 8:26 AM Scope In: Scope Out: Endoscopy Department at [facility] - [address] [place] [phone] IMPRESSION: - Diverticulosis in the sigmoid colon. - One 6 mm polyp in the descending colon, removedwith a cold snare. Resected and retrieved. - The examination was otherwise normal on directand retroflexion views. Recommendation: - Await pathology results. - Repeat colonoscopy in 5 years for surveillance. Pablo Mendez MD GI~PROCEDURE ORDERABLES Fin al Result * Tissue exam (09/17/2025 8:39 AM EST) Final Diagnosis Polyp, descending colon, polypectomy: - Tubular adenoma. 09/18/2025 10:09 AM EST [facility] at 1009 EST Gross Description A. Large Intestine, Left/Descendi ng Colon, polyp: Labeled descending colon polyp . Received in formalin is a 0.4 cm irregular short mucosal tissue fragment which is wrapped in paper and submitted in toto in one cassette, one piece, multiple levels on one side. PRADEEP 09/18/2025 10:09 AM [facility] Disclaimer Unless otherwise specified, all tissue is 10% NB formalin fixed and paraffin embedded. 09/18/2025 10:09 AM [facility] Tissue Descending colon structure / Unknown 09/17/2025 8:39 AM EST 09/17/2025 10:15 AM EST us Pablo Mendez MD LAB PATHOLOGY ORDERABLES Fi nal Result [facility] [address] [place] [address], * Non-gynecologic cytology (08/07/2025 12:00 AM EDT) Final Diagnosis Cystoscopic urine, [id number]: Negative for high grade urothelial carcinoma. Results of UroVysion fluorescence in situ hybridization (FISH) testing: CEP3: Normal CEP7: Normal CEP17: Normal LSI 9p21: Normal Interpretation: Normal profile Controls stained appropriately. Note: The results are intended as a screening device and should be interpreted in association with other clinical and pathological findings. 08/28/2025 12:39 PM [facility] at 1239 EST Specimen A Adequacy Satisfactory for evaluation 08/28/2025 12:39 PM EST [facility] Clinical Information History of bladder neoplasm (malignant) Z85.51 Urine Cytology/FISH (now) 08/28/2025 12:39 PM [facility] Gross Description A. Cystoscopic, [id number]: Received one ThinPrep slide for cytology and one ThinPrep slide for UroVysion FISH 08/28/2025 12:39 PM [facility] Disclaimer Unless otherwise specified, all tissue is 10% NB formalin fixed and paraffin embedded. Technical pathology services provided by [facility] at [address], [place] [address] (CLIA #[id number]/Shabnam Dwyer MD, Emergency Medcl Emt) 08/28/2025 12:39 PM [facility] Urine Cystoscope / Unknown 08/07/2025 08/23/2025 7:32 AM EDT Sang Knutson MD LAB CYTOLOGY ORDERABLES Final Result [facility] [address] [place] [address], from Last 3 Months Additional Health Concerns Active Problems Noted Date Diagnosed Date Autogenerated Problem 08/19/2025 Insurance MEDICARE [facility] [address] [place] [address] Care Teams Pattern Gater Relationship Specialty Start Date End Date Daniel Mooney MD [address] [place] [id number] PCP - General Internal Medicine 04/13/25
--- OUTSIDE RECORDS SUMMARY | 2025-09-26 14:40 | XMS_ITS | Clinical Summary ---
Author Organization [facility] Address [address] [address] Phone Care Team Providers Care Director Of [facility] [facility] Name Role Phone Daniel Mooney MD Primary Care Provider Sang Knutson MD Unavailable [phone] Abdiaziz Aceves MD, MPH Unavailable [phone] Allergies No known active allergies Medications carvedilol (COREG ORAL) Take by mouth. Ac tive amLODIPine (NORVASC) 5 MG tablet Take 5 mg by mouth daily. 2 Active aspirin 81 MG EC tablet Take 81 mg by mouth. Active ciclopirox (CICLODAN) 0.77 % cream 1 application to affected area Externally to feet Twice a day for 30 days 2 Active fluticasone propionate (FLONASE) 50 mcg/actuation nasal spray as needed (mostly in summer time when gets congested). 2 Active tadalafiL (CIALIS, ADCIRCA) 20 MG tablet Take 20 mg by mouth daily. 3 Active tamsulosin (FLOMAX) 0.4 mg Cap 3 Active atorvastatin (LIPITOR) 10 MG tablet Take 10 mg by mouth daily. 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 I have toñito sing 08/10/2024 How many times have you move [...] Orientation Straight 06/27/2024 12 :31 PM EDT Last Filed Vital Signs Vital Sign Reading Time Taken Comments Blood Pressure 131/67 10/31/2024 11:12 AM EST Pulse 63 10/31/2024 11:12 AM EST Temperature 36.3 C (97.3 F) 08/10/2024 2:15 PM EDT Respiratory Rate 18 08/10/2024 2:15 PM EDT Oxygen Saturation 97% 08/10/2024 2:16 PM EDT Inhaled Oxygen Concentration - - Weight 90.7 kg (200 lb) 10/31/2024 11:12 AM EST Height 163.2 cm (5' 4.25 ) 10/10/2024 10:[address] Body Mass Index 34.06 10/10/2024 10:54 AM EST Plan of Treatment Health Maintenance Due Date Last Done Comments Adult Td,Tdap Booster 1950 LIPID PANEL 1950 DEPRESSION SCREENING 1961 HEPATITIS C SCREENING 1967 COLOGUARD 1994 COLONOSCOPY 1994 COLORECTAL CANCER SCREENING 1994 FIT TEST 1994 FOBT 1994 SIGMOIDOSCOPY 1994 VIRTUAL COLONOSCOPY 1994 INFLUENZA VACCINE (#1) 2025 , 09/13/2023, 06/13/2022, Additional history exists COVID-19 VACCINE (2024- season) 2025 07/19/2024, 09/09/2022, 10/15/2021, Additional history exists ZOSTER VACCINES Completed 06/25/2021, 09/17/2020 PNEUMOCOCCAL VACCINES (50+ years) Completed 04/27/2023, 01/01/2020 RSV VACCINE Completed 2023 SMOKING STATUS SCREENING (Once After 26 Yrs) Completed 10/31/2024 HEPATITIS A VACCINES Aged Out No long er eligible based on patient's age to complete this topic HIB VACCINES Aged Out No longer eligi ble based on patient's age to complete this topic MENINGOCOCCAL VACCINES (ACWY) Aged Out No longer eligible based on patient's age to complete this topic MENINGOCOCCAL VACCINES (B) Aged Out N o longer eligible based on patient's age to complete this topic Medical Devices Not on file Insurance MEDICARE PART A & B MEDICARE PART A & B O MEDICARE PART A & B HMO MEDICARE PART A & B MEDICARE PART A & B MEDICARE PART A & B O MEDICARE PART A & B O MEDICARE PART A & [place] [facility] [place]: [address] [address] MEDICARE PART A & B O MEDICARE PART A & B Care Teams Director Of [facility] [employer] [facility] Relationship Specialty Start Date End Date Daniel Mooney MD [address] [place] [address] [address] [place] [address] PCP - General Internal Medicine 08/02/18 Sang Knutson MD [address] [facility] [address] [place] [phone] [email or web address] Referring Physician Urology 06/27/24 Abdiaziz Aceves MD, MPH [address] [place] [id number] [email or web address] Urology 06/27/24 Additional Source Comments The information contained in this document represents components of the legal health record. It is not the complete legal health record.[facility]
--- OUTSIDE RECORDS SUMMARY | 2025-09-26 14:40 | XMS_ITS | Encounter Summary ---
Author Organization [facility] Address [address] [place] [address] Care Team Providers Care Customer Marketing Intern Name Role Phone Daniel Mooney MD Primary Care Provider Encounter Details Date Type Department Care Team ([facility] st Contact Info) Description 09/19/2025 Results Follow-Up Gastroenterology - [address] [phone] Pablo Mendez MD [address] [place] [address] [address] [place] [address] Social History Tobacco Use Types Packs/Day Years Used Date Smoking Tobacco: Never Smokeless Tobacco: Never Alcohol Use Standard Drinks/Week Comments Yes 3 [...] Rosi Cabezas documented as of this encounter Visit Diagnoses Not on filedocumented in this encounter Additional Health Concerns Active Problems Noted Date Diagnosed Date Autogenerated Problem 08/19/2025 documented as of this encounter Care Teams Customer Marketing Intern Relationship Specialty Start Date End Date Daniel Mooney MD [address] [place] [address] PCP - General Internal Medicine 04/13/25 documented as of this encounter
--- OUTSIDE RECORDS SUMMARY | 2025-09-26 14:40 | XMS_ITS | Encounter Summary ---
Author Organization [facility] Address [address] [place] [address] Care Team Providers Care Hotel Director Name Role Phone Daniel Mooney MD Primary Care Provider Encounter Details Date Type Department Care Team (Late st Contact Info) Description 01/02/2025 Lab Requisition [facility] - Main Lab 299 [facility] [place] [address] Sang Knutson MD [address] [place] [phone] Carcinoma in situ of bladder Social History [...] and pathological findings. 01/09/2025 12:[address] [facility] Addendum electronically signed by Bruno Cordoba MD on 01/09/2025 at 1243 EDT Final Diagnosis A. Urine, Voided, ([id number]): Negative for high grade urothelial carcinoma. Acute inflammatory cells are present. Note: UroVysion testing to follow. 01/09/2025 12:[address] 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 Gross Description A. Urine, Voided, ([id number]): Received one ThinPrep slide for cytology and one ThinPrep slide for UroVysion FISH 01/09/2025 12:[address] [facility] Disclaimer Unless otherwise specified, all tissue is 10% NB formalin fixed and paraffin embedded. Technical pathology services provided by [facility] at [address] [facility] [address] [place] [address] (CLIA #[id number]/Shabnam Dwyer MD, Explosive Expert) 01/09/2025 12:[address] [facility] Tissue Urine specimen from urethra / Unknown 12/28/2024 01/02/2025 4:26 PM EDT us Sang Knutson MD LAB PATHOLOGY ORDERABLES Edite d Result - Final [facility] [address] [place] [address], documented in this encounter Visit Diagnoses Diagnosis Carcinoma in situ of bladder documented in this encounter Care Teams Hotel Director Relationship Specialty Start Date End Date Daniel Mooney MD [address] [place] [address] PCP - General Internal Medicine 04/13/25 documented as of this encounter
== END 2025-09-26 13:22 | disposition home or self-care (01) ==
LOC: HO.HBS 12:22
PROVIDERS: PCP Internal Medicine; Visit Provider Physician Assistant Surgical
DX: E66.811 Obesity, class 1 (principal); Z68.30 Body mass index [BMI] 30.0-30.9, adult; Z71.3 Dietary counseling and surveillance
CPT/HCPCS: 99213; G2211

== ENCOUNTER → 2025-09-26 12:21 | Outpatient (BNVA) | payer MEDICARE, OTHER, SELFPAY | PROVIDERS: PCP Internal Medicine; Visit Provider Physician Assistant Surgical | DX: E66.9 Obesity, unspecified (principal); Z79.899 Other long term (current) drug therapy | CPT/HCPCS: 99212 ==